=== PATIENT | female | born 1995 | race Caucasian/White ===

== ENCOUNTER 2017-11-21 15:21 | Emergency (ER) | payer OTHER ==
[2017-11-21 16:30] LABS: Bilirubin Negative (Negative); Blood, Urine Negative (Negative); Clarity CLEAR (Clear); Glucose, Urine (Dipstick) Negative (Negative); Leukocyte Moderate (Negative); Nitrite Positive (Negative); Protein, Urine (Dipstick) Negative (Neg-Trace); Urobilinogen 0.2 mg/dL (0.2-1.0); pH, Urine 7.5 (5.0-9.0)
[2017-11-21 16:39] LABS: Bacteria/HPF 2+ HPF (None Seen); RBC/HPF None Seen HPF (0-3); Specific Gravity, Urine 1.004 (1.002-1.036); Squamous Epithelial 0-3 HPF (0-3)
[2017-11-21 16:40] LABS: Hyaline Casts/LPF NONE SEEN LPF (0-3 Hyaline)
== END 2017-11-21 17:34 | disposition left against medical advice (07) ==
LOC: ERS 15:21
DX: N39.0 Urinary tract infection, site not specified (principal); F17.210 Nicotine dependence, cigarettes, uncomplicated
CPT/HCPCS: 81003; 81015; 99283

== ENCOUNTER 2018-11-13 18:08 | Emergency (ER) | payer BC ==
--- NOTE | 2018-11-16 02:24 | EKG ---
Test Reason : SYNCOPE Blood Pressure : / mmHG Vent. Rate : 076 BPM Atrial Rate : 076 BPM P-R Int : 136 ms QRS Dur : 072 ms QT Int : 388 ms P-R-T Axes : 030 035 052 degrees QTc Int : 436 ms Normal sinus rhythm Normal ECG Confirmed by MARIETTA COYLE MD ([id number]), index editor MEGAN BENJAMIN ([id number]) on 11/16/2018 2:23:51 AM Referred By: Confirmed By:MARIETTA COYLE MD
== END 2018-11-13 20:13 | disposition home or self-care (01) ==
LOC: ERS 18:08
DX: I95.1 Orthostatic hypotension (principal); F17.210 Nicotine dependence, cigarettes, uncomplicated
CPT/HCPCS: 93005; 96360